=== PATIENT | male | born 1950 | race Caucasian/White ===

== ENCOUNTER → 2021-11-06 | Outpatient (CLI) | payer MEDICARE ==
--- NOTE | 2021-11-06 20:41 | XR ---
EXAMINATION TYPE: XR shoulder complete 3 views RT DATE OF EXAM: 11/06/2021 Comparison: None Clinical History: 71-year-old male M25.511 Pain right shoulder Findings: Degenerative change AC joint with mild joint space narrowing, capsular hypertrophy, and marginal spur ring. Subacromial space is preserved. No acute fracture, subluxation, or dislocation. Impression: [id number] AC joint OA. No acute osseous abnormality seen.
== END | disposition home or self-care (01) ==
LOC: RADXRMAIN 12:46
PROVIDERS: ATTEND Nurse Practitioner Gerontology
DX: M19.011 Primary osteoarthritis, right shoulder (principal)

== ENCOUNTER → 2022-05-28 | Outpatient (CLI) | payer MEDICARE ==
[2022-05-28 11:43] LABS: ALT 27 U/L (4-49); AST 22 U/L (17-59); African American GFR (CKD) >90 (>60 ml/min/1.73 sqM); Albumin 4.5 g/dL (3.5-5.0); Alkaline Phosphatase 74 U/L (38-126); Anion Gap 7 mmol/L; Blood Urea Nitrogen 24 mg/dL (9-20); Calcium 9.1 mg/dL (8.4-10.2); Carbon Dioxide 30 mmol/L (22-30); Chloride 103 mmol/L (98-107); Globulin 2.3 g/dL; Glucose 109 mg/dL (74-99); Non-African American GFR(CKD) 82 (>60 ml/min/1.73 sqM); Potassium 4.6 mmol/L (3.5-5.1); Sodium 140 mmol/L (137-145); Total Bilirubin 0.6 mg/dL (0.2-1.3); Total Protein 6.8 g/dL (6.3-8.2); Uric Acid 6.4 mg/dL (3.5-8.5)
[2022-05-28 11:58] LABS: T4, Free (Free Thyroxine) 0.98 ng/dL (0.78-2.19)
--- NOTE | 2022-05-28 13:48 | CT ---
EXAMINATION TYPE: CT abdomen pelvis w con DATE OF EXAM: 05/28/2022 COMPARISON: None. HISTORY: Hematuria CT DLP: 569 mGycm, Automated Exposure Control for Dose Reduction was Utilized. CONTRAST: CT scan of the abdomen and pelvis is performed with oral and with IV Contrast, patient injected with 70 mL of Isovue 300. FINDINGS: LUNG BASES: No significant abnormality is appreciated. LIVER/GB: No significant abnormality is appreciated. PANCREAS: No significant abnormality is seen. SPLEEN: No significant abnormality is seen. ADRENALS: No significant abnormality is seen. KIDNEYS: Symmetric cortical medullary uptake and excretion without hydronephrosis seen bilaterally. T here is 5 mm nonobstructing calculus lower pole right kidney coronal image 57. No concerning solid or cystic renal mass identified. No intraluminal mass or calculus in the bladder. BOWEL: Normal appearing appendix from base of cecum. No suspicious small or large bowel dilatation is seen. PROSTATE/SEMINAL VESICLES: Enlarged prostate consistent with BPH. Central calcifications are presen t. LYMPH NODES: No greater than 1cm abdominal or pelvic lymph nodes are appreciated. OSSEOUS STRUCTURES: No significant abnormality is seen. OTHER: No significant additional abnormality is seen. IMPRESSION: There is 5 mm nonobstructing calculus lower pole right kidney likely accounting for patie nt's symptoms.
[2022-05-28 19:38] LABS: Chol/HDL Ratio 7.17 Ratio; LDL Cholesterol,Calculated 121.6 mg/dL (0.0-131.0)
== END | disposition home or self-care (01) ==
LOC: RADCTMAIN 10:37
PROVIDERS: ATTEND Family Medicine
DX: N20.0 Calculus of kidney (principal); R31.9 Hematuria, unspecified
CPT/HCPCS: 84439; 84153; 80061; 80053; 82607; 84443; 84550; 74177; 36415; Q9967

== ENCOUNTER → 2022-09-28 | Outpatient (CLI) | payer MEDICARE ==
--- NOTE | 2022-09-30 08:14 | MR ---
EXAMINATION TYPE: MR Prostate wo/w con DATE OF EXAM: 09/28/2022 COMPARISON: CT abdomen and pelvis May 28, 2022. IMAGE QUALITY: Good. INDICATION: Hematuria PSA: 1.70 ng/ml on June 25, 2022 Recent Biopsy and Date: None Pathology Report (If Applicable): n/a TECHNIQUE: Examination was performed using a 3T MRI without an endorectal coil. Multiparametric imaging was perf ormed with T2 mutliplanar sequences, axial diffusion weighted imaging and dynamic contrast enhanced i maging, utilizing 7 mL intravenous Gadavist gadolinium contrast. FINDINGS: PROSTATE VOLUME: 5.3 cm SI x 3.9 cm AP x 5.8 cm LR Vol= 62.8 cc PSA DENSITY: 0.03 ng/ml/cc Enlarged prostate gland is redemonstrated. Peripheral zone is thinned without areas of significant di minished signal on ADC mapping or increased signal on diffusion-weighted imaging. There is central tr ansitional zone hypertrophy with small 7 mm encapsulated nodule in the mid to apical right aspect axi al image 14. No areas of larger indistinct T2 hypointensity or significant restricted diffusion. Seminal vesicles are symmetric and thought within normal limits. Prostate capsule is maintained. Blad keily shows mild wall thickening and trabeculation. No concerning pelvic adenopathy. No pelvic fluid co llection. Osseous structures are intact. IMPRESSION: Enlarged prostate consistent with BPH A focus of clinically significant cancer is not identified. Highest Assessment Category: 2 MRI Stage: T0 N0 M0 based on review of pelvic images. False negative rates for MRI range from 5-20% depending on risk profile. Assessment Categories: 1 ? Very low (clinically significant cancer is highly unlikely to be present) 2 ? Low (clinically significant cancer is unlikely to be present) 3 ? Intermediate (the presence of clinically significant cancer is equivocal) 4 ? High (clinically significant cancer is likely to be present) 5 ? Very high (clinically significant cancer is highly likely to be present)
== END | disposition home or self-care (01) ==
LOC: RADMRIMAIN 12:03
PROVIDERS: ATTEND Urology
DX: N40.0 Benign prostatic hyperplasia without lower urinary tract symptoms (principal)
CPT/HCPCS: 72197; A9585

== ENCOUNTER → 2023-04-11 | Outpatient (CLI) | payer MEDICARE ==
--- NOTE | 2023-04-11 12:46 | US ---
EXAMINATION TYPE: US kidneys/renal and bladder DATE OF EXAM: 04/11/2023 COMPARISON: NONE CLINICAL INDICATION: Male, 72 years old with history of R31.0 GROSS HEMATURIA; Hematuria EXAM MEASUREMENTS: Right Kidney: 11.4 x 4.9 x 4.4 cm Left Kidney: 10.7 x 5.1 x 4.3 cm Right Kidney: no evidence of hydronephrosis Left Kidney: prominent collecting system Bladder: appears wnl Bilateral Jets seen: no There is no evidence for hydronephrosis at this point in time. No nephrolithiasis is seen. No jose guadalupe s are identified. The urinary bladder is anechoic. IMPRESSION: Mild fullness left renal collecting system of uncertain etiology.
== END | disposition home or self-care (01) ==
LOC: RADUSWWP 12:18
PROVIDERS: ATTEND Urology
DX: R31.0 Gross hematuria (principal)
CPT/HCPCS: 76770

== ENCOUNTER → 2023-06-04 | Outpatient (CLI) | payer MEDICARE, OTHER ==
[2023-06-04 14:09] LABS: African American GFR (CKD) >90 (>60 ml/min/1.73 sqM); Blood Urea Nitrogen 22 mg/dL (9-20); Non-African American GFR(CKD) 86 (>60 ml/min/1.73 sqM)
--- NOTE | 2023-06-09 21:56 | CT ---
EXAMINATION TYPE: CT urogram wo/w con DATE OF EXAM: 06/04/2023 COMPARISON: 05/28/2022 HISTORY: 72-year-old male R93.429, ABNORMAL KIDNEY FINDINGS, NO SYMPTOMS. TECHNIQUE: Contiguous axial scanning of the abdomen and pelvis performed without and with IV Contrast , patient injected with 100ML mL of Isovue 300. Delayed images through the kidneys and bladder were o btained. Coronal/sagittal reconstructions performed. 3-D reconstructions generated on a dedicated [employer] workstation. CT DLP: 3375 mGycm Automated exposure control for dose reduction was used. FINDINGS: The heart is normal size without pericardial effusion. Lung bases are clear without pleural effusion. Liver enlarged at 19.6 cm. No focal lesion is seen. No biliary ductal dilatation. Portal venous syste m is patent. Gallbladder, right adrenal gland, spleen, and pancreas within normal limits. Unchanged 1.6 cm left adrenal nodularity compared to 05/28/2022 suggesting a benign etiology. There are prominent fluid-filled small bowel loops in the mid to lower abdomen. No dilated small jose j l, free fluid, or free air. No mesenteric or retroperitoneal lymphadenopathy. Normal appendix. There is moderate overall stool burden. No pericolonic inflammatory change. Kidneys show no nephrolithiasis or hydronephrosis. No suspicious renal mass is seen. No abnormal fill ing defect within the renal collecting systems. Satisfactory enhancement along the bilateral ureters. No abnormal filling defect identified within the bladder. There is continued nodular mass effect onto the base of the bladder from an enlarged prostate gland currently measuring 6.3 cm wide in compariso n to 5.9 cm back on 05/28/2022. The degree of internal heterogeneity has increased as well. Patulous left renal canal. No abnormal fluid collection the pelvis or pelvic lymphadenopathy. Bones: No osseous destructive process. IMPRESSION: 1. NO NEPHROLITHIASIS, HYDRONEPHROSIS, OR SUSPICIOUS RENAL/COLLECTING SYSTEM LESION IS IDENTIFIED. 2. PROSTATOMEGALY UP TO 6.3 CM WIDE, PROGRESSED FROM 5.9 CM BACK ON 05/28/2022. THE DEGREE OF PARENCH YMAL HETEROGENEITY HAS ALSO INCREASED FROM THEN. FINDINGS MAY REFLECT BPH. CORRELATE WITH PSA VALUES. FOLLOW-UP PROSTATE MRI OR ULTRASOUND IF ANY SUSPICION FOR UNDERLYING PROSTATE CANCER. 3. MILD HEPATOMEGALY AT 19.6 CM. UNCHANGED 1.6 CM LEFT ADRENAL NODULE. MODERATE STOOL BURDEN.
== END | disposition home or self-care (01) ==
LOC: RADCTMAIN 13:23
PROVIDERS: ATTEND Family Medicine
DX: N40.0 Benign prostatic hyperplasia without lower urinary tract symptoms (principal); R16.0 Hepatomegaly, not elsewhere classified; E27.8 Other specified disorders of adrenal gland; R19.5 Other fecal abnormalities; R93.429 Abnormal radiologic findings on diagnostic imaging of unspecified kidney
CPT/HCPCS: 82565; 84520; 74178; 36415; 74400; Q9967